=== PATIENT | male | born 1985 | race African-American/Black ===

== ENCOUNTER 2017-11-08 06:21 | Observation (INO) ==
--- NOTE | 2017-11-08 07:01 | Emergency Department Note ---
Disposition Clinical Impression: Abscess of skin or subcutaneous tissue Qualifiers: Site of cutaneous abscess: other site Qualified Code(s): L02.818 - Cutaneous abscess of other sites Disposition: Admitted As Inpatient Condition: Good Skin/Abscess/FB HPI Chief complaint: ED Skin/Abscess/Foreign Body Stated complaint: abscess on leg Time Seen by Provider: 11/08/17 06:32 Source: patient Limitations: no limitations Nursing Notes Reviewed: Yes Vital Signs Reviewed: Yes HPI Narrative: 32 year old male with history of recurrent subcutaneous abscess presents with left thigh abscess. Pt stated he has a cyst in left thigh for years. It got infected several times in the past. Pt stated it started getting swelling and tender since yesterday. He follows up with Dr. Millard for the lumps and cyst in groin area. He reported similar abscess in buttock last year. It ended up to be surgically removed by Dr. Millard. Patient stated he has had I&D procedures and taken oral antibiotics Bactrim and Keflex in the past, which never worked. Patient stated he is is supposed to have a appointment with Dr. Millard yesterday. But it was rescheduled to . Patient stated he could not tolerated the pain anymore. Patient denied IV drug abuse. No chills and a fever at this time. Pt Subjective Complaint: abscess/boil Onset (ago): day(s) (1) Tetanus Up to Date: yes Location: genitals (left groin/thigh) Severity: moderate Quality: burning, stabbing Consistency: constant Home Medications Medication Instructions Recorded Confirmed No Known Home Drugs 11/08/17 11/08/17 Allergies Allergy/AdvReac Type Severity Reaction Status Date / Time No Known Allergies Allergy Verified 11/08/17 11:53 Constitutional: Denies: fever, chills, weakness, weight change Eyes: Denies: eye pain, eye discharge, vision change ENT ED: Denies: ear pain, throat pain, dental pain, hearing loss, epistaxis, congestion, dysphagia Cardiovascular: Denies: chest pain, palpitations, dyspnea on exertion, edema, syncope Respiratory: Denies: cough, dyspnea, wheezes, hemoptysis, stridor Gastrointestinal: Denies: abdominal pain, nausea, vomiting, diarrhea, constipation, hematemesis, melena, hematochezia Genitourinary: Denies: urgency, dysuria, frequency, hematuria Musculoskeletal: Denies: back pain, neck pain, arthralgia, myalgia Integumentary: Reports: lesions (Abscess in groin area). Denies: rash, abrasion Neurological: Denies: headache, weakness, numbness, paresthesias, confusion, abnormal gait, vertigo Psychiatric: Denies: anxiety, depression, suicidal thoughts, homicidal thoughts , auditory hallucinations, visual hallucinations Endocrine: Denies: fatigue Hematological/Lymphatic: Denies: easy bleeding, easy bruising Allergic/Immunologic: Denies: facial swelling, urticaria Past Medical History - Past Medical History Medical history: Reports: no medical history Psychiatric history: Reports: no psych history - Social History Smoking Status: Current every day smoker Smokeless Tobacco Status: No Alcohol use: Reports: heavy Drug use: Reports: none Physical Exam - General Limitations: no limitations General appearance: alert - Head Head exam: atraumatic, normocephalic, normal inspection - Eye Eye exam: Present: normal appearance, PERRL, EOMI - ENT ENT exam: normal exam, normal oropharynx, mucous membranes moist - Neck Neck exam: Present: normal inspection, full ROM, trachea midline - Chest Chest inspection: Present: normal inspection, symmetric chest wall rise - Respiratory Respiratory exam: Present: normal lung sounds bilaterally. Absent: respiratory distress, wheezes - Cardiovascular Cardiovascular exam: Present: regular rate, normal rhythm, normal heart sounds - Abdominal Exam Abdominal exam: Present: soft, Non-Tender. Absent: tenderness, distention, guarding, rebound, rigidity - Extremities Exam Extremities exam: Present: normal inspection, full ROM. Absent: tenderness, pedal edema - Back Exam Back exam: Present: normal inspection, full ROM. Absent: tenderness - Neurological Exam Neurological exam: Present: alert, oriented X3 - Psychiatric Psychiatric exam: Present: normal affect, normal mood - Skin Skin exam: Present: warm, dry, normal color. Absent: intact (A 34 cm in duration in left growing area, mild erythema, warmth and tender to palpation.) Course Vital Signs Temperature 97.8 F 11/08/17 06:26 Pulse Rate 86 11/08/17 06:26 Respiratory Rate 20 11/08/17 06:26 Blood Pressure 140/74 11/08/17 06:26 O2 Sat by Pulse Oximetry 97 11/08/17 06:26 Temperature 97.8 F 11/08/17 06:26 Pulse Rate 69 11/08/17 11:37 Respiratory Rate 16 11/08/17 11:37 Blood Pressure 117/61 11/08/17 11:37 O2 Sat by Pulse Oximetry 97 11/08/17 11:37 Oxygen Delivery Oxygen Delivery Room Air Skin/Abscess/Foreign Body - MDM Narrative Medical decision making narrative: 32-year-old male with a history of recurrent subacute tenderness abscess presents for thigh/groin area abscess. Patient reported failed I&D and oral antibiotics treatment for abscess in the past. Patient requested since surgical intervention on this abscess. No chills and a fever. No history of diabetes or IV drug abuse. Physical exam: A 34 cm abscess on left thigh. Labs : normal white cell. IV antibiotics given in ER. Spoke with Dr. Millard in the phone, Dr. Millard will send provider to see the patient in the ER. Dr. Phelps saw the pt and agrees the above plan. 11:40 am, LASHAWN Chopra saw the patient and decided to admitte pt to surgical service by Dr. Millard for IV antibiotics , CT and further evaluation. - Lab Data Lab results reviewed: Yes I reviewed the patient's lab results. Result diagrams: 11/08/17 07:52 11/08/17 07:52 Lab Results 11/08/17 11/08/17 Range/Units 07:52 07:52 WBC 5.5 (4.3-11.1) K/mcL RBC 5.30 (4.19-5.50) M/mcL Hgb 16.4 (12.9-16.9) g/dL Hct 46.3 (37.5-50.1) % MCV 87.4 (83.0-100.0) fL MCH 30.9 (28.0-33.3) pg MCHC 35.4 (31.6-35.5) g/dL RDW 12.9 (11.5-14.5) % Plt Count 148 (140-400) K/mcL MPV 9.7 (9.4-12.4) fL Immature Gran % 0.4 (0-4) % Seg Neutrophils % 61.8 % Lymphocytes % 23.1 % Monocytes % 10.1 % Eosinophils % 4.2 % Basophils % 0.4 % Neutrophils # 3.4 (1.6-8.9) K/mcL Lymphocytes # 1.3 (0.6-4.6) K/mcL Monocytes # 0.6 (0.0-1.3) K/mcL Eosinophils # 0.2 (0.0-0.6) K/mcL Basophils # 0.0 (0.0-0.2) K/mcL Sodium 134 L (136-145) mEq/L Potassium 3.9 (3.5-5.1) mEq/L Chloride 105 (98-107) mEq/L Carbon Dioxide 22 L (23-29) mEq/L BUN 17 (6-20) mg/dL Creatinine 1.03 (0.70-1.30) mg/dL Est GFR ( Amer) > 60 (> 60) Est GFR (Non-Af Amer) > 60 (> 60) BUN/Creatinine Ratio 17 (6-26) Glucose 106 H (70-105) mg/dL Calculated Osmolality 280 (280-300) Calcium 9.2 (8.6-10.3) mg/dL Total Bilirubin 0.7 (0.3-1.0) mg/dL AST 16 (13-39) Units/L ALT 17 (7-52) Units/L Alkaline Phosphatase 81 (34-104) Units/L Serum Total Protein 7.2 (6.4-8.9) g/dL Albumin 4.1 (3.5-5.7) g/dL Globulin 3.1 (2.4-3.5) g/dL Albumin/Globulin Ratio 1.3 (1.1-2.2)
[2017-11-08] MEDS ORDERED: Clindamycin 600 MG/50 ML 600 MG/50 ML IV.SOLN IVPB STA (07:15)
[2017-11-08] MEDS ORDERED: 0.9 % Sodium Chloride 1,000 ML IVC ONE (07:15)
[2017-11-08] MEDS ORDERED: Ketorolac 30 MG/ML VIAL IVP ONE (07:16)
[2017-11-08 08:06] LABS: Basophils % 0.4 %; Eosinophils # 0.2 K/mcL (0.0-0.6); Eosinophils % 4.2 %; Hematocrit 46.3 % (37.5-50.1); Hemoglobin 16.4 g/dL (12.9-16.9); Immature Granulocytes % 0.4 % (0-4); Lymphocytes # 1.3 K/mcL (0.6-4.6); Lymphocytes % 23.1 %; Mean Corpuscular HGB Conc 35.4 g/dL (31.6-35.5); Mean Corpuscular Hemoglobin 30.9 pg (28.0-33.3); Mean Corpuscular Volume 87.4 fL (83.0-100.0); Mean Platelet Volume 9.7 fL (9.4-12.4); Monocytes # 0.6 K/mcL (0.0-1.3); Monocytes % 10.1 %; Neutrophils # 3.4 K/mcL (1.6-8.9); Platelet Count 148 K/mcL (140-400); Red Cell Distribution Width 12.9 % (11.5-14.5); Segmented Neutrophils % 61.8 %
[2017-11-08 08:28] LABS: Alanine Aminotransferase 17 Units/L (7-52); Albumin 4.1 g/dL (3.5-5.7); Albumin/Globulin Ratio 1.3 (1.1-2.2); Alkaline Phosphatase 81 Units/L (34-104); Aspartate Amino Transferase 16 Units/L (13-39); BUN/Creatinine Ratio 17 (6-26); Bilirubin,Total 0.7 mg/dL (0.3-1.0); Blood Urea Nitrogen 17 mg/dL (6-20); Calcium 9.2 mg/dL (8.6-10.3); Carbon Dioxide 22 mEq/L (23-29); Chloride 105 mEq/L (98-107); Globulin 3.1 g/dL (2.4-3.5); Glucose 106 mg/dL (70-105); Osmolality,Calculated 280 (280-300); Potassium 3.9 mEq/L (3.5-5.1); Sodium 134 mEq/L (136-145); Total Protein 7.2 g/dL (6.4-8.9); eGFR For Non-African Americans > 60 (> 60)
[2017-11-08] MEDS ORDERED: Ondansetron 4 MG/2 ML VIAL IVP PRN (12:02)
[2017-11-08] MEDS ORDERED: Naloxone 0.4 MG/ML INJ IVP PRN (12:02)
[2017-11-08] MEDS ORDERED: Acetaminophen 325 MG TABLET PO PRN (12:05)
--- NOTE | 2017-11-08 12:07 | Emergency Department Note ---
Disposition Clinical Impression: Abscess of skin or subcutaneous tissue Disposition: Admitted As Inpatient Condition: Good General Adult HPI - General Chief complaint: ED Skin/Abscess/Foreign Body Stated complaint: abscess on leg Time Seen by Provider: 11/08/17 06:32 Source: patient Limitations: no limitations - History of Present Illness Pain Scale: 5 - Related Data Home Medications Medication Instructions Recorded Confirmed No Known Home Drugs 11/08/17 11/08/17 Allergies Allergy/AdvReac Type Severity Reaction Status Date / Time No Known Allergies Allergy Verified 11/08/17 11:53 Past Medical History - Past Medical History Medical history: Reports: no medical history Psychiatric history: Reports: no psych history - Social History Smoking Status: Current every day smoker Smokeless Tobacco Status: No Alcohol use: Reports: heavy Drug use: Reports: none Physical Exam - General Limitations: no limitations General appearance: alert Course Vital Signs Temperature 97.8 F 11/08/17 06:26 Pulse Rate 86 11/08/17 06:26 Respiratory Rate 20 11/08/17 06:26 Blood Pressure 140/74 11/08/17 06:26 O2 Sat by Pulse Oximetry 97 11/08/17 06:26 Temperature 98.2 F 11/08/17 15:42 Pulse Rate 69 11/08/17 15:42 Respiratory Rate 16 11/08/17 15:42 Blood Pressure 124/72 11/08/17 15:42 O2 Sat by Pulse Oximetry 96 11/08/17 15:42 Oxygen Delivery Oxygen Delivery Room Air Medical Decision Making - Lab Data Result diagrams: 11/08/17 07:52 11/08/17 07:52 Lab Results 11/08/17 11/08/17 Range/Units 07:52 07:52 WBC 5.5 (4.3-11.1) K/mcL RBC 5.30 (4.19-5.50) M/mcL Hgb 16.4 (12.9-16.9) g/dL Hct 46.3 (37.5-50.1) % MCV 87.4 (83.0-100.0) fL MCH 30.9 (28.0-33.3) pg MCHC 35.4 (31.6-35.5) g/dL RDW 12.9 (11.5-14.5) % Plt Count 148 (140-400) K/mcL MPV 9.7 (9.4-12.4) fL Immature Gran % 0.4 (0-4) % Seg Neutrophils % 61.8 % Lymphocytes % 23.1 % Monocytes % 10.1 % Eosinophils % 4.2 % Basophils % 0.4 % Neutrophils # 3.4 (1.6-8.9) K/mcL Lymphocytes # 1.3 (0.6-4.6) K/mcL Monocytes # 0.6 (0.0-1.3) K/mcL Eosinophils # 0.2 (0.0-0.6) K/mcL Basophils # 0.0 (0.0-0.2) K/mcL Sodium 134 L (136-145) mEq/L Potassium 3.9 (3.5-5.1) mEq/L Chloride 105 (98-107) mEq/L Carbon Dioxide 22 L (23-29) mEq/L BUN 17 (6-20) mg/dL Creatinine 1.03 (0.70-1.30) mg/dL Est GFR ( Amer) > 60 (> 60) Est GFR (Non-Af Amer) > 60 (> 60) BUN/Creatinine Ratio 17 (6-26) Glucose 106 H (70-105) mg/dL Calculated Osmolality 280 (280-300) Calcium 9.2 (8.6-10.3) mg/dL Total Bilirubin 0.7 (0.3-1.0) mg/dL AST 16 (13-39) Units/L ALT 17 (7-52) Units/L Alkaline Phosphatase 81 (34-104) Units/L Serum Total Protein 7.2 (6.4-8.9) g/dL Albumin 4.1 (3.5-5.7) g/dL Globulin 3.1 (2.4-3.5) g/dL Albumin/Globulin Ratio 1.3 (1.1-2.2) Attestation Statement - Attestation Attestation: For this encounter, I have reviewed the LEARNING SERVICES COORDINATOR or PA documentation, treatment plan, and medical decision making; and I have had face to face time with this patient. [id number] time provided Patient appears in no acute distress. Surgery admits the patient for abscess
--- NOTE | 2017-11-08 12:12 | General Surg History&Physical ---
<Katelin Peter - Last Filed: 11/08/17 14:36> Date of Encounter: 11/08/17 Time of Encounter: 11:45 Assessment and Plan (1) Abscess of skin or subcutaneous tissue Status: Chronic The assessment and plan as outlined above was discussed with the patient and/or family members who expressed understanding and agreement. All questions were answered. IV antibiotics- Zosyn and vancomycin Plan for bedside I&D of left groin abscess Local wound care Cultures- gram stain, aerobic and anaerobic cultures Supportive care and pain control Ambulate hallways TID Qualifiers: Site of cutaneous abscess: extremity Site of cutaneous abscess of extremity : lower extremity Laterality: left Qualified Code(s): L02.416 - Cutaneous abscess of left lower limb History of Present Illness Chief complaint: Left groin pain HPI: Mr. Hicks is a 32 year old male who presents to the ED with complaints of left groin pain which started yesterday. He states that when he woke up this morning , he was unable to walk due to the pain. He states that he has had pain similar to this on 2 separate occasions. The first episode was 2 years ago and the area was opened and drained. He states that it did improve with I&D and antibiotics. He states that the most recent episode was 3 weeks ago and at that time, the area spontaneously opened on its own. He was treated with antibiotics. He followed up with Dr. Millard but was having no symptoms in the left groin at that time. He did have an US of his scrotum to follow up on abnormal CT findings. He admits to having chills. He admits to nausea without vomiting. Denies any difficulty with urination. The patient will be admitted to the hospital for further work-up and treatment. Past Med Surg Social Fam HX - Past Medical History Source: patient, old records reviewed Medical history: other (previous abscess to the left groin) Psychiatric history: no psych history - Past Surgical History Surgical History: other (I&D of left groin abscess, surgery to remove cyst from abdomen) Additional surgical history: I&Ds of abscess face & neck, - Social History Smoking Status: Current every day smoker Smokeless Tobacco Status: No Alcohol use: heavy Drug use: none Occupational status: employed Current living situation: Home - Independent Activity Level: Independent ambulation - Family History Father Living Status: Still Living Mother Living Status: Still Living Hx Family Cardiac Disorders: Yes (HTN) Hx Family Endocrine Disorder: Yes (Diabetes Mellitus) Medications and Allergies Amoxicillin/Clavulanate [Augmentin] 875 mg PO BIDWM #20 tablet 11/09/17 [Rx] OxyCODONE/APAP 5/325 [Percocet 5/325 MG] 1 each PO Q4HR PRN 5 Days #20 tablet [Rx] Sulfamethoxazole/Trimeth DS [Bactrim DS] 1 each PO BID #20 tablet 11/09/17 [Rx] 3 Allergy/AdvReac Type Severity Reaction Status Date / Time No Known Allergies Allergy Verified 11/08/17 11:53 Review of Systems All systems PM: reviewed and no additional remarkable complaints except as stated (in the HPI) All systems PM: The remainder of the systems were reviewed and are negative General Surgery Exam Initial Vital Signs Temp Pulse Resp BP Pulse Ox 97.8 F 86 20 140/74 97 11/08/17 06:26 11/08/17 06:26 11/08/17 06:26 11/08/17 06:26 11/08/17 06:26 - General physical appearance well developed, well nourished, moderate distress, moderate pain - Eyes normal ocular movement - ENT normal mucosa, atraumatic, normocephalic - Neck trachea midline - Respiratory normal expansion, normal respiratory effort, clear to auscultation - Cardiovascular Cardiovascular exam: Present: RRR - Abdomen Abdomen general surgery: Present: bowel sounds present, soft, non tender - Integumentary Integumentary general surgery: Present: warm and dry, other (Left groin- erythema and induration, moderately tender to palpation, mild fluctuance) - Neurologic Present: CN 2-12 grossly intact - Psychiatric Psychiatric general surgery: Present: appropriate, oriented to person, oriented to place, oriented to time, speech is normal, memory intact Results - Labs 11/08/17 07:52 11/08/17 07:52 Abnormal lab results Sodium 134 mEq/L (136-145) L 11/08/17 07:52 Carbon Dioxide 22 mEq/L (23-29) L 11/08/17 07:52 Glucose 106 mg/dL (70-105) H 11/08/17 07:52 All other labs normal. - Imaging CT scan - pelvis: report reviewed Additional studies: Pelvis CT 11/08/17 12:07 IMPRESSION: Subcutaneous fat stranding to the anteromedial left proximal thigh/inguinal region with subtle low-attenuation collection with rim enhancement centered within the fat stranding. Findings are concerning for cellulitis with phlegmon/developing abscess measuring 2.3 x 1.2 x 2.1 cm. No gas internal to the collection. No soft tissue gas. Prominent left inguinal lymph nodes likely reactive. Stable low-attenuation ovoid focus to the superior scrotal sac on the left correlating with findings on recent CT left lower extremity and scrotal ultrasound. Reference to the ultrasound can be made for additional information. No acute or suspicious intrapelvic abnormalities. D/ / 11/08/2017 13:54:18 Hayden Guevara MD / earnold Interpreting Provider: Hayden Guevara MD - Attending Attestation For this encounter, I have reviewed the CONSTRUCTION HELPER or PA documentation, treatment plan, and medical decision making; and I have had face to face time with this patient. <Odin Millard M - Last Filed: 11/10/17 12:33> Date of Encounter: 11/08/17 Assessment and Plan (1) Abscess of skin or subcutaneous tissue Status: Chronic The assessment and plan as outlined above was discussed with the patient and/or family members who expressed understanding and agreement. All questions were answered. Qualifiers: Site of cutaneous abscess: extremity Site of cutaneous abscess of extremity : lower extremity Laterality: left Qualified Code(s): L02.416 - Cutaneous abscess of left lower limb History of Present Illness HPI: Mr. Hicks is a 32 year old male Review of Systems All systems PM: The remainder of the systems were reviewed and are negative General Surgery Exam Initial Vital Signs Temp Pulse Resp BP Pulse Ox 97.8 F 86 20 140/74 97 11/08/17 06:26 11/08/17 06:26 11/08/17 06:26 11/08/17 06:26 11/08/17 06:26 Results - Labs 11/09/17 06:39 11/09/17 06:39 Abnormal lab results Sodium 135 mEq/L (136-145) L 11/09/17 06:39 Glucose 110 mg/dL (70-105) H 11/09/17 06:39 All other labs normal. - Attending Attestation I reviewed the above assessment and evaluation and agree with the above plan.
[2017-11-08] MEDS ORDERED: Isovue-370 500 ML INFUS..BTL IV ONE (13:01)
[2017-11-08] MEDS: *HR* OxyCODONE/APAP 10/325 TABLET PO PRN ×2 (14:40→19:34)
[2017-11-08] MEDS: Piperacillin/Tazobactam 3.375 GM in 0.9 % Sodium Chloride Mini Bag 100 ML IVPB SCH (15:19)
[2017-11-08] MEDS ORDERED: *HR* FentaNYL (PF) 100 MCG/2 ML VIAL IVP ONE (15:31)
[2017-11-08] MEDS: *HR* OxyCODONE/APAP 5/325 TABLET PO PRN (17:46)
[2017-11-08] MEDS: Nicotine 21 MG PATCH.TD24 TD SCH (18:33)
[2017-11-09] MEDS: *HR* OxyCODONE/APAP 10/325 TABLET PO PRN ×3 (00:22→14:46)
[2017-11-09] MEDS: Piperacillin/Tazobactam 3.375 GM in 0.9 % Sodium Chloride Mini Bag 100 ML IVPB SCH ×2 (00:23→10:02)
[2017-11-09 06:56] LABS: Basophils % 0.2 %; Eosinophils # 0.2 K/mcL (0.0-0.6); Hematocrit 43.5 % (37.5-50.1); Hemoglobin 15.1 g/dL (12.9-16.9); Immature Granulocytes % 0.4 % (0-4); Lymphocytes # 1.3 K/mcL (0.6-4.6); Lymphocytes % 23.4 %; Mean Corpuscular HGB Conc 34.7 g/dL (31.6-35.5); Mean Corpuscular Hemoglobin 31.9 pg (28.0-33.3); Mean Corpuscular Volume 91.8 fL (83.0-100.0); Mean Platelet Volume 9.8 fL (9.4-12.4); Monocytes # 0.6 K/mcL (0.0-1.3); Monocytes % 11.1 %; Neutrophils # 3.3 K/mcL (1.6-8.9); Platelet Count 140 K/mcL (140-400); Red Blood Count 4.74 M/mcL (4.19-5.50); Red Cell Distribution Width 12.7 % (11.5-14.5); Segmented Neutrophils % 61.9 %
[2017-11-09 07:18] LABS: BUN/Creatinine Ratio 15 (6-26); Blood Urea Nitrogen 16 mg/dL (6-20); Calcium 8.7 mg/dL (8.6-10.3); Carbon Dioxide 27 mEq/L (23-29); Chloride 104 mEq/L (98-107); Glucose 110 mg/dL (70-105); Osmolality,Calculated 282 (280-300); Potassium 4.2 mEq/L (3.5-5.1); Sodium 135 mEq/L (136-145); eGFR For Non-African Americans > 60 (> 60)
[2017-11-09] MEDS: Nicotine 21 MG PATCH.TD24 TD SCH (10:03)
[2017-11-09 10:38] VITALS: BP 155/80
--- NOTE | 2017-11-09 16:00 | Discharge Summary ---
Orders not resulted at time of discharge: Pending orders 11/08/17 16:00 Culture,Anaerobic [RM] Stat Culture,Wound [RM] Stat 11/10/17 00:00 Vancomycin,Trough Timed Date of Encounter: 11/09/17 Time of Encounter: 14:00 - Discharge Diagnosis (1) Abscess of skin or subcutaneous tissue Priority: Primary Status: Chronic Qualifiers: Site of cutaneous abscess: extremity Site of cutaneous abscess of extremity : lower extremity Laterality: left Qualified Code(s): L02.416 - Cutaneous abscess of left lower limb General Surgery Exam Initial Vital Signs Temp Pulse Resp BP Pulse Ox 97.8 F 86 20 140/74 97 11/08/17 06:26 11/08/17 06:26 11/08/17 06:26 11/08/17 06:26 11/08/17 06:26 - General physical appearance well developed, well nourished, no distress - Eyes normal ocular movement - ENT normal mucosa, atraumatic, normocephalic - Neck trachea midline - Respiratory normal expansion, normal respiratory effort, clear to auscultation - Cardiovascular Cardiovascular exam: Present: RRR - Abdomen Abdomen general surgery: Present: bowel sounds present, soft, non tender - Incision Incision: Present: serosanguinous, open (left groin) - Integumentary Integumentary general surgery: Present: warm and dry - Neurologic Present: CN 2-12 grossly intact - Psychiatric Psychiatric general surgery: Present: appropriate, oriented to person, oriented to place, oriented to time, speech is normal, memory intact - Hospital Course Hospital course: Mr. Hicks is a 32 year old male who presented to the emergency department with complaint of left groin pain. He was noted to have cellulitis and abscess to the left groin. He did undergo incision and drainage of this area per myself. Cultures were sent for Gram stain, aerobic, anaerobic evaluation. The patient was treated with Zosyn and vancomycin and did respond well. On POD #1, he states that his symptoms are resolving. Vital signs are stable and he is afebrile. His white blood cell count is normal. His pain is well-controlled. He states that his girlfriend can complete daily packing. We will begin discharge planning to home and plan for outpatient follow-up in 1 week. He will be given 10 days of oral antibiotics. - Time Spent with Patient Total time spent providing and/or coordinating discharge services: Less than 30 minutes - Discharge Medications Prescriptions: OxyCODONE/APAP 5/325 [Percocet 5/325 MG] 1 each PO Q4HR PRN 5 Days #20 tablet PRN Reason: Moderate Pain Amoxicillin/Clavulanate [Augmentin] 875 mg PO BIDWM #20 tablet Sulfamethoxazole/Trimeth DS [Bactrim DS] 1 each PO BID #20 tablet Home Medications: Amoxicillin/Clavulanate [Augmentin] 875 mg PO BIDWM #20 tablet 11/09/17 [Rx] OxyCODONE/APAP 5/325 [Percocet 5/325 MG] 1 each PO Q4HR PRN 5 Days #20 tablet [Rx] Sulfamethoxazole/Trimeth DS [Bactrim DS] 1 each PO BID #20 tablet 11/09/17 [Rx] Allergies/Adverse Reactions: 3 Allergy/AdvReac Type Severity Reaction Status Date / Time No Known Allergies Allergy Verified 11/08/17 11:53 Date of admission: 11/08/17 11:52 Primary care physician: Jeb Jacobson Discharging clinician: Odin Millard (Ky Peter) Anticipated date of discharge: 11/09/17 Labs on day of discharge: Labs from last 24 hours 11/09/17 11/09/17 06:39 06:39 WBC 5.4 RBC 4.74 Hgb 15.1 Hct 43.5 MCV 91.8 MCH 31.9 MCHC 34.7 RDW 12.7 Plt Count 140 MPV 9.8 Immature Gran % 0.4 Seg Neutrophils % 61.9 Lymphocytes % 23.4 Monocytes % 11.1 Eosinophils % 3.0 Basophils % 0.2 Neutrophils # 3.3 Lymphocytes # 1.3 Monocytes # 0.6 Eosinophils # 0.2 Basophils # 0.0 Sodium 135 L Potassium 4.2 Chloride 104 Carbon Dioxide 27 BUN 16 Creatinine 1.04 Est GFR ( Amer) > 60 Est GFR (Non-Af Amer) > 60 BUN/Creatinine Ratio 15 Glucose 110 H Calculated Osmolality 282 Calcium 8.7 Preliminary micro results at discharge 11/08/17 16:00 Wound Culture - Preliminary Other-Specify in Comments No growth. - Impressions ITS Impressions Pelvis CT 11/08/17 12:07 IMPRESSION: Subcutaneous fat stranding to the anteromedial left proximal thigh/inguinal region with subtle low-attenuation collection with rim enhancement centered within the fat stranding. Findings are concerning for cellulitis with phlegmon/developing abscess measuring 2.3 x 1.2 x 2.1 cm. No gas internal to the collection. No soft tissue gas. Prominent left inguinal lymph nodes likely reactive. Stable low-attenuation ovoid focus to the superior scrotal sac on the left correlating with findings on recent CT left lower extremity and scrotal ultrasound. Reference to the ultrasound can be made for additional information. No acute or suspicious intrapelvic abnormalities. D/ / 11/08/2017 13:54:18 Hayden Guevara MD / [email or web address] Interpreting Provider: Hayden Guevara MD - Patient Status Disposition: Home, Self-Care Condition: Good Overall status at discharge: patient is back to baseline - Discharge Instructions Follow Up With: Jeb Jacobson MD [Primary Care Provider] - Katelin Chopra CNP [Advanced Practice Nurse] - 11/17/17 8:45 am (surgery follow-up) Forms: Work/School Release Additional Instructions: #1 may shower, no tub bath for 2 weeks #2 wash incisions with soap and water and pat dry daily #3 no lifting, pushing, pulling more than 15 pounds for the next 1 weeks #4 no driving until off narcotics for 24 hours and able to safely react in the car #5 may climb stairs - Diet and Activity Activity: increase activity as tolerated Diet: advance to your usual diet - Attending Attestation For this encounter, I have reviewed the ASSOCIATE TECHNICIAN or PA documentation, treatment plan, and medical decision making; and I have had face to face time with this patient.
[2017-11-09] MEDS: *HR* OxyCODONE/APAP 5/325 TABLET PO PRN (17:38)
[2017-11-09] MEDS ORDERED: Aminoglycoside Consult 1 EACH MC ONE (18:03)
--- NOTE | 2017-11-23 08:59 | General Surgery Procedure Note ---
Date of procedure: 11/08/17 Pre-op diagnosis: Left groin abscess/cellulitis Post-op diagnosis: same Procedure: After informed consent was obtained and time out performed, the patient was placed in the supine position. His left groin was prepped with betadine. The affected area was localized with 10ml of 1% lidocaine. After achieving appropriate localization, a 3cm incision was made over the most fluctuant area of the left groin. There was immediate return of a small amount of purulent drainage. The cavity was opened with the use of hemostats. Cultures were obtained for gram stain, aerobic and anaerobic cultures. The cavity was flushed with 20ml of saline and then packed with 1/4 inch plain gauze. The area was then covered with a 4X4 gauze and taped to secure. The patient tolerated the procedure well and there were no immediate complications noted. Complications: none Anesthesia: local Surgeon: Katelin Peter Pathology: other (gram stain, aerobic and anaerobic culture) Condition: stable Disposition: no change
== END 2017-11-09 18:04 | disposition home or self-care (01) ==
LOC: EMEROOARM 06:21 → 3ANU 06:21
PROVIDERS: ADMIT Surgery; ATTEND Surgery